=== PATIENT | female | born 1995 ===

== ENCOUNTER → 2024-10-04 | Outpatient (CLI) | payer OTHER | END | disposition home or self-care (01) | LOC: LAB SHORT 13:48 → LAB 13:48 | DX: N64.52 Nipple discharge (principal); R82.998 Other abnormal findings in urine | CPT/HCPCS: 84146; 87077; 87086; 87186 ==

== ENCOUNTER → 2024-10-28 | Outpatient (CLI) | payer OTHER | LOC: LAB 10:35 → LAB SHORT 10:35 | DX: R30.0 Dysuria (principal) | CPT/HCPCS: 87086 ==